=== PATIENT | male | born 1960 | race Caucasian/White ===

== ENCOUNTER 2023-08-22 12:10 | Outpatient (AMB) | payer OTHER, SELFPAY ==
--- NOTE | 2023-08-22 13:13 | MHC.OFFWIV ---
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 He reports his joints have bothered him for many years, however his right knee has been increasingly painful over the last several weeks. 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 Feels most pain and swelling at the medial aspect of his right knee. Has been taking Meloxicam and using Voltaren gel topically. [facility] Social History Patient Tobacco Use Status: Never used Tobacco Review of Systems Const All systems reviewed & are unremarkable except as noted in HPI and below Physical Exam Vital Signs: Last Vital Signs Temp 97.9 F 08/22/23 13:17 Pulse 53 08/22/23 13:17 BP 122/78 08/22/23 13:17 Pulse Ox 98 08/22/23 13:17 Oxygen Delivery Method Room Air 08/22/23 13:17 BMI result Body Mass Index 26.6 Const General: cooperative and no acute distress Nutritional Appearance: average body habitus Resp Effort & Inspection: normal respiratory effort Skin General skin exam: no rashes or lesions noted Extrem General: Yes capillary refill normal and Yes no clubbing, cyanosis or edema Right lower extremity: knee Details: tenderness Location: of the medial joint line, swelling Location: of the proximal tibia Details: medially and abnormal ROM Details: pain with active ROM during Details: in extension Psych Appearance: grossly normal Mental Status: mental status grossly normal Speech and movement: Normal speech and movement present Assessment & Plan Assessment & Plan (1) Right medial knee pain: Code(s): M25.561 - Pain in right knee Plan: Patient has right medial knee pain and swelling. XR obtained in the office shows fairly significant degenerative joint changes. I discussed this with patient and his . We discussed treatment options, and I recommended he see an urban redevelopment specialist. He is going to call PCP today for a referral to [facility]. He already takes Meloxicam. I am going to provide him with a very short course of pain medication to take for severe pain, once when conservative measures with NSAIDs, ice, rest, elevation, topical gel have not been effective. We reviewed indications, use, risks, possible side effects of this medication. Work note provided to stay out of work until Sunday. All questions were answered, and patient and present at visit verbalize understanding and agree to plan. Medications: New tramadol 50 mg PO BID PRN 8 tabs 0RF severe pain (scale score 7-10) 4 days M25.561 - Pain in right knee Coding Level of Care Code Est Pt Level 3 (53232) Diagnoses Right medial knee pain M25.561
[2023-08-22 13:17] VITALS: BP 122/78; PULSE 53; TEMP 36.6; O2SAT 98; BMI 26.6
== END 2023-08-22 14:36 | disposition home or self-care (01) ==
PROVIDERS: Visit Provider Nurse Practitioner Family
DX: M25.561 Pain in right knee (principal)
CPT/HCPCS: 99213

== ENCOUNTER 2023-08-22 13:52 | Outpatient (REF) | payer OTHER, SELFPAY | END 2023-08-22 13:53 | disposition home or self-care (01) | LOC: HO.HMGCX 13:52 | PROVIDERS: PCP Internal Medicine; Visit Provider Nurse Practitioner Family | DX: M25.561 Pain in right knee (principal) | CPT/HCPCS: 73564 ==